=== PATIENT | female | born 1975 ===

== ENCOUNTER 2017-02-10 01:29 | Emergency (ER) | payer SELFPAY ==
[2017-02-10 01:56] VITALS: RESP 16; TEMP 98.7; O2SAT 100
[2017-02-10] MEDS ORDERED: Oxycodone/Acetaminophen 5/325 mg Tab ONE (01:58)
[2017-02-10] MEDS ORDERED: Oxycodone/Acetaminophen 5/325 mg Tab PO ONE (01:59)
--- NOTE | 2017-02-10 02:07 | ED PDOC ---
Upper Extremity Pain/Injury Time Seen by Provider: 02/10/17 01:50 Chief Complaint (Nursing): Finger,Hand,&Wrist Chief Complaint (Provider): right thumb pain History Per: Patient History/Exam Limitations: no limitations Onset/Duration Of Symptoms: Days (3) Current Symptoms Are (Timing): Still Present Hands/Wrist (Pic): 1 - Tenderness, Swelling Additional History Per: Patient Additional Complaint(s): 42 y/o female presents with pain to left thumb x 3 days. Patient states caught her thumb in car door while shutting it. She notes bruising to nail, for which she tried to open without relief. No improvement of pain with one Tylenol. Denies fever, numbness/weakness left upper extremity, limitation of movement. Past Medical History Reviewed: Historical Data, Nursing Documentation, Vital Signs Vital Signs: Last Vital Signs Temp 98.7 F 02/10/17 01:49 Pulse 74 02/10/17 01:49 Resp 16 02/10/17 01:49 BP 132/105 H 02/10/17 01:49 Pulse Ox 100 02/10/17 01:49 - Medical History PMH: No Chronic Diseases Denies: Chronic Kidney Disease - Surgical History Surgical History: - Family History Family History: States: Unknown Family Hx - Home Medications Home Medications: Ambulatory Orders Medication Instructions Recorded Naproxen [Naprosyn Tab] 500 mg PO BID PRN #20 tab 07/02/15 Nitrofurantoin Macrocrystals 100 mg PO BID #14 cap 07/02/15 [Macrobid] Misoprostol [Cytotec] 800 mcg VAG ONCE #1 tablet 05/09/16 Acetaminophen with Codeine 1 tab PO Q6 PRN #10 tab 02/10/17 [Tylenol with Codeine No. 3 300 mg-30 mg] Cephalexin [cephalexin] 500 mg PO Q6 #27 cap 02/10/17 - Allergies Allergies/Adverse Reactions: Allergies Allergy/AdvReac Type Severity Reaction Status Date / Time No Known Allergies Allergy Verified 07/02/15 13:39 Review of Systems ROS Statement: Except As Marked, All Systems Reviewed And Found Negative Musculoskeletal: Positive for: Hand Pain (left thumb) Physical Exam - Reviewed Nursing Documentation Reviewed: Yes Vital Signs Reviewed: Yes - Physical Exam Appears: Positive for: Well, Non-toxic, No Acute Distress Pulses-Radial (L): 2+ Pulses-Radial (R): 2+ Extremity: Positive for: Tenderness (left thumb, DIP, distal aspect. + subungual hematoma. Mild surrounding erythema with scabbed abrasion noted medial aspect) Neurologic/Psych: Positive for: Alert, Oriented. Negative for: Motor/Sensory Deficits - ECG O2 Sat by Pulse Oximetry: 100 - Other Rad xray left thumb X-Ray: Viewed By [place] X-Ray Interpretation: no acute findings - Progress ED Course And Treament: Percocet PO, Keflex PO, xray Cautery used to puncture nail with + dark blood feedback. Nail wrapped, thumb spica immobilizer given for comfort. Patient educated on findings, discharged wtih rx Keflex, Tylenol #3. Advised ice to affected area. Follow up PMD 2-3 days. Return to ED for worsening/concerning symptoms. Disposition - Clinical Impression Clinical Impression: Subungual hematoma, Crushing injury of thumb, left - Patient ED Disposition Is Patient to be Admitted: No Counseled Patient/Family Regarding: Studies Performed, Diagnosis, Need For Followup, Rx Given - Disposition Referrals: [facility] [Outside] Disposition: Routine/Home Disposition Time: 02:46 Condition: IMPROVED Prescriptions: Cephalexin [cephalexin] 500 mg PO Q6 #27 cap Acetaminophen with Codeine [Tylenol with Codeine No. 3 300 mg-30 mg] 1 tab PO Q6 PRN #10 tab PRN Reason: Pain Instructions: Subungual Hematoma (ED), Crush Injury (ED) Print Language: VIETNAMESE
[2017-02-10 03:03] VITALS: BP 132/88; PULSE 76
--- NOTE | 2017-02-10 09:02 | RAD ---
PROCEDURE: Left Thumb radiographs. HISTORY: left thumb injury, pain DIP COMPARISON: None. TECHNIQUE: AP radiograph of the left hand, as well as spot oblique and lateral images of thumb were obtained. FINDINGS: LEFT THUMB: Normal left thumb, without fracture or focal lesion. Remainder of the left hand (as seen on the AP view) grossly unremarkable. JOINTS: Normal. SOFT TISSUES: Normal. OTHER FINDINGS: None. IMPRESSION: No evidence of acute fracture or dislocation.
== END 2017-02-10 03:05 | disposition home or self-care (01) ==
LOC: H.ER 01:29
DX: S69.92XA Unspecified injury of left wrist, hand and finger(s), initial encounter (principal); V49.3XXA Car occupant (driver) (passenger) injured in unspecified nontraffic accident, initial encounter

== ENCOUNTER 2017-12-24 18:33 | Emergency (ER) | payer OTHER ==
[2017-12-24 20:02] VITALS: BP 137/77; PULSE 77; RESP 18; TEMP 99.4; O2SAT 98
--- NOTE | 2017-12-24 21:30 | ED PDOC ---
HPI: General Adult Time Seen by Provider: 12/24/17 20:12 Chief Complaint (Nursing): Flu-like Symptoms Chief Complaint (Provider): Flu like symptoms History Per: Patient History/Exam Limitations: no limitations Onset/Duration Of Symptoms: Days (1) Have you had recent travel within the past 21 days to any of the following countries: [place], [place], [place] or [place]?: No Current Symptoms Are (Timing): Still Present Additional History Per: Patient Additional Complaint(s): 42yo female presents to ED with complaints of cough, congestion, bodyaches and fever for the past days. She denies taking any medications; also denies any known sick contacts. Patient denies chest pain, shortness of breath, nausea, vomiting, diarrhea, recent sick travel. Past Medical History Reviewed: Historical Data, Nursing Documentation, Vital Signs Vital Signs: Last Vital Signs Temp 99.4 F 12/24/17 19:59 Pulse 77 12/24/17 19:59 Resp 18 12/24/17 19:59 BP 137/77 12/24/17 19:59 Pulse Ox 98 12/24/17 19:59 - Medical History PMH: No Chronic Diseases Denies: Chronic Kidney Disease - Surgical History Surgical History: - Family History Family History: States: Unknown Family Hx - Home Medications Home Medications: Ambulatory Orders Medication Instructions Recorded Naproxen [Naprosyn Tab] 500 mg PO BID PRN #20 tab 07/02/15 Nitrofurantoin Macrocrystals 100 mg PO BID #14 cap 07/02/15 [Macrobid] Misoprostol [Cytotec] 800 mcg VAG ONCE #1 tablet 05/09/16 Acetaminophen with Codeine 1 tab PO Q6 PRN #10 tab 02/10/17 [Tylenol with Codeine No. 3 300 mg-30 mg] Cephalexin [cephalexin] 500 mg PO Q6 #27 cap 02/10/17 Benzonatate [Tessalon Perle] 100 mg PO Q8 PRN #30 capsule 12/24/17 Ibuprofen [Motrin] 600 mg PO Q6 PRN #30 tab 12/24/17 Oseltamivir [Tamiflu] 75 mg PO BID #10 cap 12/24/17 - Allergies Allergies/Adverse Reactions: Allergies Allergy/AdvReac Type Severity Reaction Status Date / Time No Known Allergies Allergy Verified 12/24/17 20:01 Review of Systems ROS Statement: Except As Marked, All Systems Reviewed And Found Negative Constitutional: Positive for: Fever ENT: Positive for: Nose Congestion, Throat Pain Cardiovascular: Negative for: Chest Pain Respiratory: Positive for: Cough. Negative for: Shortness of Breath Physical Exam - Reviewed Nursing Documentation Reviewed: Yes Vital Signs Reviewed: Yes - Physical Exam Appears: Positive for: Non-toxic, No Acute Distress Head Exam: Positive for: ATRAUMATIC, NORMAL INSPECTION, NORMOCEPHALIC Skin: Positive for: Warm, Dry Eye Exam: Positive for: EOMI, PERRL ENT: Positive for: Normal ENT Inspection. Negative for: Pharyngeal Erythema, Tonsillar Exudate, Tonsillar Swelling Neck: Positive for: Painless ROM, Supple Cardiovascular/Chest: Positive for: Regular Rate, Rhythm. Negative for: Murmur Respiratory: Positive for: Normal Breath Sounds. Negative for: Wheezing Gastrointestinal/Abdominal: Positive for: Normal Exam, Soft. Negative for: Tenderness Back: Positive for: Normal Inspection Neurologic/Psych: Positive for: Alert, Oriented. Negative for: Motor/Sensory Deficits - ECG O2 Sat by Pulse Oximetry: 98 (RA) Medical Decision Making Medical Decision Making: Impression: Flu like symptoms Plan: -- Patient to be empirically treated for influenza. Given prescription for Motrin, Tamiflu and Tessalon Perles. Informed to follow up with PCP in 1-2 days. Stable for discharge home. Scribe Attestation: Documented by Poornima Marshall acting as a scribe for JAIMIE Paz Provider Attestation: All medical record entries made by the Scribe were at my direction and personally dictated by me. I have reviewed the chart and agree that the record accurately reflects my personal performance of the history, physical exam, medical decision making, and the department course for this patient. I have also personally directed, reviewed, and agree with the discharge instructions and disposition. Disposition - Clinical Impression Clinical Impression: Influenza-like symptoms - Disposition Disposition: Routine/Home Disposition Time: 20:40 Condition: STABLE Prescriptions: Benzonatate [Tessalon Perle] 100 mg PO Q8 PRN #30 capsule PRN Reason: Cough Ibuprofen [Motrin] 600 mg PO Q6 PRN #30 tab PRN Reason: Fever >100.4 F Oseltamivir [Tamiflu] 75 mg PO BID #10 cap Instructions: Influenza (ED) Forms: [facility] (Faroese), [facility] ED School/Work Excuse Print Language: UZBEK
== END 2017-12-24 21:05 | disposition home or self-care (01) ==
LOC: H.ER 18:33
DX: J11.1 Influenza due to unidentified influenza virus with other respiratory manifestations (principal)

== ENCOUNTER 2018-09-13 23:20 | Emergency (ER) | payer OTHER ==
[2018-09-14] MEDS ORDERED: Sodium Chloride 0.9% 1,000 ML IV STA (00:01)
[2018-09-14 00:42] LABS: BASO % 0.2 % (0.0-2.0); EOS # 0.5 K/uL (0.0-0.7); EOS % 4.7 % (0.0-4.0); HEMOGLOBIN 11.6 g/dL (12.0-16.0); LYMPH # 2.3 K/uL (1.0-4.3); LYMPH % 23.7 % (20.0-40.0); MEAN CELL VOLUME 92.2 fl (81.0-99.0); MEAN CORPUSCULAR HEMOGLOBIN 30.9 pg (27.0-31.0); MEAN CORPUSCULAR HGB CONC 33.5 g/dL (33.0-37.0); MEAN PLATELET VOLUME 9.6 fl (7.2-11.7); MONO # 0.9 K/uL (0.0-0.8); MONO % 9.8 % (0.0-10.0); NEUT % 61.6 % (50.0-75.0); NRBC % 0.1 % (0.0-0.0); RBC 3.76 Mil/uL (3.80-5.20); RED CELL DISTRIBUTION WIDTH 15.1 % (11.5-14.5); WHITE BLOOD COUNT 9.7 K/uL (4.8-10.8)
--- NOTE | 2018-09-14 00:52 | ED PDOC ---
HPI: Abdomen Time Seen by Provider: 09/13/18 23:47 Chief Complaint (Nursing): GI Problem Chief Complaint (Provider): Abdominal Pain, Diarrhea History Per: Patient History/Exam Limitations: no limitations Onset/Duration Of Symptoms: Days (x2) Outside of [place] travel?: No Current Symptoms Are (Timing): Still Present Additional Complaint(s): 43 year old female with no pmhx presents to the ED for evaluation of left sided crampy abdominal pain and diarrhea for the past two days associated with nausea and two episodes of non-bloody, non-bilious vomiting. Patient reports that yesterday she developed the diarrhea, described as loose and isak dk, but non-bloody, 11 episodes then, and 5 more today. She notes taking Pepto- Bismal with no relief. Otherwise, denies fever and recent travel. PMD: none provided Past Medical History Reviewed: Historical Data, Nursing Documentation, Vital Signs Vital Signs: Last Vital Signs Temp 98.5 F 09/13/18 23:28 Pulse 70 09/13/18 23:28 Resp 19 09/13/18 23:28 BP 132/84 09/13/18 23:28 Pulse Ox 98 09/13/18 23:28 - Medical History PMH: No Chronic Diseases Denies: Chronic Kidney Disease - Surgical History Surgical History: - Family History Family History: States: Unknown Family Hx - Social History Current smoker - smoking cessation education provided: No Alcohol: None Drugs: Denies - Home Medications Home Medications: Ambulatory Orders Medication Instructions Recorded Naproxen [Naprosyn Tab] 500 mg PO BID PRN #20 tab 07/02/15 Nitrofurantoin Macrocrystals 100 mg PO BID #14 cap 07/02/15 [Macrobid] Misoprostol [Cytotec] 800 mcg VAG ONCE #1 tablet 05/09/16 Acetaminophen with Codeine 1 tab PO Q6 PRN #10 tab 02/10/17 [Tylenol with Codeine No. 3 300 mg-30 mg] Cephalexin [cephalexin] 500 mg PO Q6 #27 cap 02/10/17 Benzonatate [Tessalon Perle] 100 mg PO Q8 PRN #30 capsule 12/24/17 Ibuprofen [Motrin] 600 mg PO Q6 PRN #30 tab 12/24/17 Oseltamivir [Tamiflu] 75 mg PO BID #10 cap 12/24/17 Ciprofloxacin [Cipro] 500 mg PO Q12 #14 tab 09/14/18 Dicyclomine [Bentyl] 20 mg PO Q12 PRN #20 tab 09/14/18 metroNIDAZOLE [Flagyl] 500 mg PO Q12 #14 tab 09/14/18 - Allergies Allergies/Adverse Reactions: Allergies Allergy/AdvReac Type Severity Reaction Status Date / Time No Known Allergies Allergy Verified 12/24/17 20:01 Review of Systems ROS Statement: Except As Marked, All Systems Reviewed And Found Negative Constitutional: Negative for: Fever Gastrointestinal: Positive for: Nausea, Vomiting (x2 episodes non-bloody, non- bilious), Abdominal Pain (left mid, crampy), Diarrhea (x16 total episodes loose, watery, non-bloody) Physical Exam - Reviewed Nursing Documentation Reviewed: Yes Vital Signs Reviewed: Yes - Physical Exam Appears: Positive for: No Acute Distress Head Exam: Positive for: ATRAUMATIC, NORMOCEPHALIC Skin: Positive for: Normal Color, Warm, Dry Eye Exam: Positive for: Normal appearance ENT: Positive for: Normal ENT Inspection Neck: Positive for: Normal, Painless ROM, Supple Cardiovascular/Chest: Positive for: Regular Rate, Rhythm Respiratory: Positive for: Normal Breath Sounds. Negative for: Respiratory Distress Gastrointestinal/Abdominal: Positive for: Soft, Tenderness (mild left mid abdomen) Neurologic/Psych: Positive for: Alert, Oriented (x3) - Laboratory Results Result Diagrams: 09/14/18 00:30 09/14/18 00:30 - ECG O2 Sat by Pulse Oximetry: 98 (RA) Pulse Ox Interpretation: Normal Medical Decision Making Medical Decision Making: Time: 2353 Initial Impression: 43 year old female with diarrheal illness Initial Plan: --CT abd/pelvis IV contrast --CMP --Lipase --U-preg --U-dip --CBC with differential --Bentyl 20mg PO --Normal saline IV --Blood culture --Urinalysis 231 CT COMMENTS: Diffuse thickening and enhancement of the terminal ileum. Mild multifocal thickening and enhancement of the colon. Diffuse colonic diverticulosis. The liver is of uniform attenuation without mass or defect. There is no intra or extrahepatic biliary ductal dilatation. The spleen is normal. The gallbladder is within normal limits. The pancreas is of normal contour and attenuation characteristics. There is no evidence of adrenal mass. Both kidneys demonstrate prompt and equal nephrograms. The kidneys are normal in size, shape and configuration. There is no evidence of renal or ureteral mass. No renal or ureteral calculi are identified. There is no hydroureter or hydronephrosis. No evidence for appendicitis. No evidence for small or large bowel obstruction. There is no evidence of abdominal ascites or lymphadenopathy. Diffuse thickening of the bladder. There is no evidence of intrinsic or extrinsic bladder mass. There is no pelvic ascites or lymphadenopathy. Mild bilateral chronic symmetric changes of sacroiliitis. Images of the lung bases show no evidence of pleural or parenchymal mass. There are no pleural effusions. The bony structures are free of lytic or blastic lesions. IMPRESSION: Acute inflammatory changes of the terminal ileum and the colon. Probably infl ammatory bowel disease without perforation or abscess formation. Mild cystitis. 0244 Upon reevaluation, patient reports improvement of symptoms. Provider reinforced need to follow up in the clinic secondary to her lack of PMD with diagnosis of colitis. Scribe Attestation: Documented by Savanna Rodriguez, acting as a scribe for Richard Schwartz MD. Provider Scribe Attestation: All medical record entries made by the Scribe were at my direction and personally dictated by me. I have reviewed the chart and agree that the record accurately reflects my personal performance of the history, physical exam, medical decision making, and the department course for this patient. I have also personally directed, reviewed, and agree with the discharge instructions and disposition. Disposition - Clinical Impression Clinical Impression: Colitis - Patient ED Disposition Is Patient to be Admitted: No Counseled Patient/Family Regarding: Studies Performed, Diagnosis, Need For Followup, Rx Given - Disposition Referrals: [facility] [Outside] Disposition: Routine/Home Disposition Time: 02:46 Condition: STABLE Prescriptions: Ciprofloxacin [Cipro] 500 mg PO Q12 #14 tab Dicyclomine [Bentyl] 20 mg PO Q12 PRN #20 tab PRN Reason: abdominal pain/diarrhea metroNIDAZOLE [Flagyl] 500 mg PO Q12 #14 tab Instructions: Diarrhea in Adolescents and Adults Forms: [facility] (Danish) Print Language: NIGERIAN
[2018-09-14 00:54] LABS: ALB/GLOB RATIO 1.3 (1.0-2.1); ALBUMIN 3.9 g/dL (3.5-5.0); ALT/SGPT 38 U/L (9-52); AST/SGOT 35 U/L (14-36); BLOOD UREA NITROGEN 7 mg/dl (7-17); CALCIUM 9.3 mg/dL (8.4-10.2); GFR NON-AFRICAN AMERICAN > 60; LIPASE 90 U/L (23-300)
[2018-09-14] MEDS ORDERED: Iohexol 300 100 ML IJ ONE (01:05)
[2018-09-14] MEDS ORDERED: Sodium Chloride 0.9% 50 ML IV ONE (01:05)
[2018-09-14 02:01] LABS: SQUAMOUS EPITHIAL 1 /hpf (0-5); URINE BILIRUBIN NEGATIVE (NEGATIVE); URINE BLOOD SMALL (NEGATIVE); URINE CLARITY SLIGHTY-CLOUDY (Clear); URINE COLOR YELLOW (YELLOW); URINE GLUCOSE (UA) NEG (Normal); URINE LEUKOCYTE ESTERASE NEG Leu/uL (Negative); URINE PROTEIN NEGATIVE (NEGATIVE); URINE UROBILINOGEN 0.2-1.0 mg/dL (0.2-1.0)
[2018-09-14 02:03] LABS: URINE AMORPHOUS SEDIMENT TRACE /ul (<OCC); URINE BACTERIA TRACE (<OCC)
[2018-09-14 04:53] VITALS: BP 109/68; PULSE 67; RESP 18; TEMP 97.7; O2SAT 99
--- NOTE | 2018-09-14 11:00 | CT ---
Date of service: 09/14/2018 PROCEDURE: CT Abdomen and Pelvis with contrast HISTORY: LLQ pain COMPARISON: None. TECHNIQUE: Contrast dose: 90 mL Omnipaque 300 Radiation dose: Total exam DLP = 592.58 mGy-cm. This CT exam was performed using one or more of the following dose reduction techniques: Automated exposure control, adjustment of the mA and/or kV according to patient size, and/or use of iterative reconstruction technique. FINDINGS: LOWER THORAX: Unremarkable. LIVER: Hepatic steatosis. No gross lesion or ductal dilatation. GALLBLADDER AND BILE DUCTS: Unremarkable. PANCREAS: Unremarkable. No gross lesion or ductal dilatation. SPLEEN: Unremarkable. ADRENALS: Unremarkable. No mass. KIDNEYS AND URETERS: Unremarkable. No hydronephrosis. No solid mass. VASCULATURE: Unremarkable. No aortic aneurysm. No aortic atherosclerotic calcification or mural plaque present. BOWEL: Wall thickening with decreasing severity from the ileum to sigmoid colon with adjacent stranding. APPENDIX: Normal appendix. PERITONEUM: Tiny fat containing umbilical hernia. No free fluid. No free air. LYMPH NODES: Unremarkable. No enlarged lymph nodes. BLADDER: Unremarkable. REPRODUCTIVE: Unremarkable. BONES: No acute fracture. OTHER FINDINGS: None. IMPRESSION: Infectious/inflammatory enterocolitis.
== END 2018-09-14 03:53 | disposition home or self-care (01) ==
LOC: H.ER 23:20
DX: K52.9 Noninfective gastroenteritis and colitis, unspecified (principal)
CPT/HCPCS: 74177; 80053; 81003; 81025; 83690; 85025; 87040; 99284; J7030; Q9967

== ENCOUNTER 2019-04-01 09:21 | Emergency (ER) | payer OTHER ==
[2019-04-01 09:33] VITALS: BMI 32.2
[2019-04-01] MEDS ORDERED: Alum-Mag Hydrox-Simethicone Susp (30 mL) PO ONE (10:07)
[2019-04-01] MEDS ORDERED: Sodium Chloride 0.9% 1,000 ML IV STA (10:07)
[2019-04-01] MEDS ORDERED: Alum-Mag Hydrox-Simethicone Susp (30 mL) ONE (10:15)
--- NOTE | 2019-04-01 10:15 | ED PDOC ---
HPI: Abdomen Time Seen by Provider: 04/01/19 09:47 Chief Complaint (Nursing): GI Problem Chief Complaint (Provider): GI Problem History Per: Patient History/Exam Limitations: no limitations Onset/Duration Of Symptoms: Days (1) Quality Of Discomfort: Sharp, Cramping Additional Complaint(s): 44 y/o female presents to the ED complaining of vomiting and upper abdominal mckenna n since yesterday afternoon. She explains the pain is sharp and cramping. Patient had at least 7-8 episodes of vomiting not bloody. she states she feels hungry but cannot tolerate PO. Patient has been on Prednisone for back pain for 1 week and taking it with Xanax. Patient denies fever or any diarrhea. PMD: Minna Coates Past Medical History Reviewed: Historical Data, Nursing Documentation, Vital Signs Vital Signs: Last Vital Signs Temp 97.6 F 04/01/19 09:31 Pulse 64 04/01/19 09:31 Resp 17 04/01/19 09:31 BP 121/58 L 04/01/19 09:31 Pulse Ox 97 04/01/19 09:31 Primary Care Provider: Non [facility] Provider, - Medical History PMH: Back Problems Denies: Chronic Kidney Disease - Surgical History Surgical History: - Family History Family History: States: Unknown Family Hx - Social History Current smoker - smoking cessation education provided: No Alcohol: None - Home Medications Home Medications: Ambulatory Orders Medication Instructions Recorded Naproxen [Naprosyn Tab] 500 mg PO BID PRN #20 tab 07/02/15 Nitrofurantoin Macrocrystals 100 mg PO BID #14 cap 07/02/15 [Macrobid] Misoprostol [Cytotec] 800 mcg VAG ONCE #1 tablet 05/09/16 Acetaminophen with Codeine 1 tab PO Q6 PRN #10 tab 02/10/17 [Tylenol with Codeine No. 3 300 mg-30 mg] Cephalexin [cephalexin] 500 mg PO Q6 #27 cap 02/10/17 Benzonatate [Tessalon Perle] 100 mg PO Q8 PRN #30 capsule 12/24/17 Ibuprofen [Motrin] 600 mg PO Q6 PRN #30 tab 12/24/17 Oseltamivir Cap [Tamiflu] 75 mg PO BID #10 cap 12/24/17 Ciprofloxacin [Cipro] 500 mg PO Q12 #14 tab 09/14/18 Dicyclomine [Bentyl] 20 mg PO Q12 PRN #20 tab 09/14/18 metroNIDAZOLE [Flagyl] 500 mg PO Q12 #14 tab 09/14/18 Ondansetron ODT [Zofran ODT] 4 mg PO Q6 PRN #10 odt 04/01/19 Pantoprazole Sodium [Protonix] 40 mg PO DAILY #20 ect 04/01/19 - Allergies Allergies/Adverse Reactions: Allergies Allergy/AdvReac Type Severity Reaction Status Date / Time No Known Allergies Allergy Verified 12/24/17 20:01 Review of Systems ROS Statement: Except As Marked, All Systems Reviewed And Found Negative Constitutional: Negative for: Fever Gastrointestinal: Positive for: Vomiting, Abdominal Pain. Negative for: Diarrhea Neurological: Negative for: Dizziness Physical Exam - Reviewed Nursing Documentation Reviewed: Yes Vital Signs Reviewed: Yes - Physical Exam Appears: Positive for: Well, Non-toxic, No Acute Distress Head Exam: Positive for: ATRAUMATIC, NORMAL INSPECTION, NORMOCEPHALIC Skin: Positive for: Normal Color, Warm, Dry Eye Exam: Positive for: EOMI, Normal appearance, PERRL ENT: Positive for: Normal ENT Inspection Neck: Positive for: Normal, Painless ROM, Supple Cardiovascular/Chest: Positive for: Regular Rate, Rhythm. Negative for: Murmur Respiratory: Positive for: Normal Breath Sounds. Negative for: Wheezing Gastrointestinal/Abdominal: Positive for: Normal Exam, Soft, Tenderness (Epigastric ) Back: Positive for: Normal Inspection. Negative for: L CVA Tenderness, R CVA Tenderness Extremity: Positive for: Normal ROM Neurological/Psych: Positive for: Awake, Alert, Normal Tone, Oriented (x3). Negative for: Motor/Sensory Deficits - Laboratory Results Result Diagrams: 04/01/19 10:31 04/01/19 10:31 - ECG O2 Sat by Pulse Oximetry: 97 Medical Decision Making Medical Decision Making: Time:1006 Impression: Workup for possible gastritis. Plan: -EKG -CMP -Lipase -Magnesium -Troponin -ED urine -CBC -Maalox 30ml PO -Sodium chloride -Pepcid 20mg IV -Urinalysis -Abdominal US labs and US reviewed WBC normal LFTs and chem unremarkable Pt w marked improvement in ED, abdomen nontender in all 4 quadrants, tolerated PO and feels hungry DC from ED stop prednisone and Rx zantac Scribe Attestation: Documented by Deborah Izaguirre, acting as a scribe for Tone Whitman III. Provider Scribe Attestation: All medical record entries made by the Scribe were at my direction and personally dictated by me. I have reviewed the chart and agree that the record accurately reflects my personal performance of the history, physical exam, medical decision making, and the department course for this patient. I have also personally directed, reviewed, and agree with the discharge instructions and disposition. Disposition - Clinical Impression Clinical Impression: Vomiting, Gastritis - Patient ED Disposition Is Patient to be Admitted: No Counseled Patient/Family Regarding: Studies Performed, Diagnosis, Need For Foll owup, Rx Given - Disposition Referrals: [facility] [Outside] Disposition: Routine/Home Disposition Time: 14:30 Condition: STABLE Additional Instructions: Take medications as directed. Return to ER for any worse or new symptoms. Prescriptions: Ondansetron ODT [Zofran ODT] 4 mg PO Q6 PRN #10 odt PRN Reason: Nausea/Vomiting Pantoprazole Sodium [Protonix] 40 mg PO DAILY #20 ect Instructions: Gastritis, Nausea and Vomiting, Adult (DC) Forms: [employer] ([place]), [facility] ED School/Work Excuse
[2019-04-01 10:45] LABS: SQUAMOUS EPITHIAL 3 /hpf (0-5); URINE AMORPHOUS SEDIMENT RARE /ul (<OCC); URINE BACTERIA RARE (<OCC); URINE BILIRUBIN NEGATIVE (NEGATIVE); URINE BLOOD NEGATIVE (NEGATIVE); URINE CLARITY CLOUDY (Clear); URINE COLOR YELLOW (YELLOW); URINE GLUCOSE (UA) NEG (NEGATIVE); URINE LEUKOCYTE ESTERASE NEG Leu/uL (Negative); URINE PROTEIN NEGATIVE (NEGATIVE); URINE UROBILINOGEN 0.2-1.0 mg/dL (0.2-1.0)
[2019-04-01 10:47] LABS: BASO % 0.2 % (0.0-2.0); EOS # 0.2 K/uL (0.0-0.7); HEMOGLOBIN 12.2 g/dL (12.0-16.0); LYMPH # 1.3 K/uL (1.0-4.3); LYMPH % 13.2 % (20.0-40.0); MEAN CELL VOLUME 93.3 fl (81.0-99.0); MEAN CORPUSCULAR HEMOGLOBIN 30.7 pg (27.0-31.0); MEAN CORPUSCULAR HGB CONC 32.9 g/dL (33.0-37.0); MONO % 9.7 % (0.0-10.0); NEUT # 7.5 K/uL (1.8-7.0); NEUT % 74.9 % (50.0-75.0); NRBC % 0.1 % (0.0-0.0); RBC 3.98 Mil/uL (3.80-5.20); RED CELL DISTRIBUTION WIDTH 15.1 % (11.5-14.5)
[2019-04-01 10:55] LABS: ALB/GLOB RATIO 1.5 (1.0-2.1); ALBUMIN 4.4 g/dL (3.5-5.0); ALT/SGPT 33 U/L (9-52); AST/SGOT 31 U/L (14-36); BLOOD UREA NITROGEN 21 mg/dl (7-17); CALCIUM 9.2 mg/dL (8.4-10.2); GFR NON-AFRICAN AMERICAN > 60; LIPASE 67 U/L (23-300)
--- NOTE | 2019-04-01 12:30 | US ---
Date of service: 04/01/2019 HISTORY: RUQ andm epigastric pain COMPARISON: Comparison is made to the previous CT of the abdomen dated 09/14/2018 TECHNIQUE: Sonographic evaluation of the right upper quadrant of the abdomen. FINDINGS: LIVER: Measures 18.2 cm in length. Moderate increased echogenicity of the liver parenchyma. No mass. No intrahepatic bile duct dilatation. GALLBLADDER: No evidence of cholelithiasis or acute cholecystitis. COMMON BILE DUCT: Measures 3.5 mm. No stones. No dilatation. PANCREAS: Unremarkable as visualized. No mass. No ductal dilatation. RIGHT KIDNEY: Measures 11.6 x 6.6 x 4.3 cm in length. Normal echogenicity. No calculus, mass, or hydronephrosis. AORTA: No aneurysmal dilatation. IVC: Unremarkable. OTHER FINDINGS: None . IMPRESSION: Mild hepatomegaly demonstrates diffuse increased echogenicity suggestive of moderate hepatic steatosis. No evidence of cholelithiasis or cholecystitis. No evidence of right hydronephrosis.
[2019-04-01 15:00] VITALS: BP 103/63; PULSE 65; RESP 18; TEMP 98.1
--- NOTE | 2019-04-01 16:40 | CARD ---
APPROVED REPORT Date of service: 04/01/2019 EKG Measurement Heart [id number] <Conclusion> Normal sinus rhythm Normal ECG
[2019-04-01 17:58] VITALS: O2SAT 97
== END 2019-04-01 14:56 | disposition home or self-care (01) ==
LOC: H.ER 09:21
DX: R11.10 Vomiting, unspecified (principal); K29.70 Gastritis, unspecified, without bleeding; Z79.899 Other long term (current) drug therapy
CPT/HCPCS: 76705; 80053; 81003; 81025; 83690; 83735; 84484; 85025; 93005; 96361; 96374; 96375; 99285; J2405; J7030